=== PATIENT | male | born 1955 | race African-American/Black ===

== ENCOUNTER 2018-11-22 08:15 | Emergency (ER) | payer OTHER ==
[2018-11-22] VITALS (11 sets, daily range): BP systolic 135–161; BP diastolic 68–94
[~2018-11-22] VITALS: Ht 177.8 cm; Wt 72.6 kg
--- NOTE | 2018-11-22 08:15 | NUR ---
ED Nurse Note: Pt. AAOx3. Ambulatory. Brought in by ambulance from the street due to bizarre behavior. Per EMS, Upon arrival at the scene, Pt. was escorted already by [employer] and was reported to be running in and out of the traffic. Pt. is alert and able to answer question but has episodes of confusion during the conversation. Pt. was anxious, restless and combative.
[2018-11-22] MEDS ORDERED: NKM (08:18)
[2018-11-22] MEDS: Haloperidol 5mg/ml Inj IM ONE (08:21)
[2018-11-22] MEDS: LORazepam Inj 2mg/ml 1ml IV ONE (08:21)
--- NOTE | 2018-11-22 08:41 | Emergency Room Report ---
History of Present Illness General Chief Complaint: Behavioral Complaint Source: EMS, Law Enforcement Present Illness HPI 63-year-old male presents ED for evaluation. Brought in by EMS and [employer] for evaluation. Found running in streets. Bystanders called 911. Patient apprehended after being combative with [employer]. Arrival patient screaming and yelling. Denies any SI or HI. Denies alcohol or drug use. Denies any psychiatric history. Unwilling to provide any additional history at this time. No other aggravating relieving factors. Denies any other associated symptoms Allergies: Coded Allergies: No Known Allergies (Unverified , 11/22/18) Patient History Past Medical History: none Past Surgical History: none Pertinent Family History: none Social History: Denies: smoking, alcohol use, drug use Immunizations: UTD Reviewed Nursing Documentation: PMH: Agreed; PSxH: Agreed Nursing Documentation-PMH Past Medical History: No Stated History Review of Systems All Other Systems: negative except mentioned in HPI Physical Exam Vital Signs Date Time Temp Pulse Resp B/P (MAP) Pulse Ox O2 Delivery O2 Flow Rate FiO2 11/22/18 08:03 104 18 161/94 (116) 99 Room Air Sp02 EP Interpretation: reviewed, normal General Appearance: no apparent distress, alert, GCS 15, non-toxic, other - agitated/combative Head: normocephalic ENT: normal ENT inspection Neck: normal inspection Respiratory: chest non-tender, lungs clear, normal breath sounds, speaking full sentences Cardiovascular #1: regular rate, rhythm, no edema Gastrointestinal: normal inspection Rectal: deferred Genitourinary: no CVA tenderness Musculoskeletal: normal inspection Neurologic: other - agitated/combatvie Psychiatric: other - agitated/combative Skin: normal color Lymphatic: normal inspection Medical Decision Making Homeless Attestation I, The treating physician Dr. Casanova, have assessed and agrees that patient is medically stable for discharge to an outpatient disposition. Diagnostic Impression: Primary Impression: Substance abuse ER Course Hospital Course 63-year-old male presents with agitated aggressive behavior running on the streets. Differential diagnoses include: Psychosis, EtOH, drug abuse Clinical course patient placed on stretcher. On recruitment manager. After initial history and physical ordered labs, restraints, ativan/haldol Labs reviewed-electrolytes okay, no leukocytosis, hemoglobin/hematocrit stable, tox panel + PCP Patient allowed to sleep. Observed with stable vitals. Restraints subsequently removed once patient sedated. Patient is now alert oriented x3. No SI or HI. Behaving appropriately. Will be discharged home. Homeless checklist completed i. I feel this is a highly complex case requiring extensive working including EKG/Rhythm strip, Xray/CT/US, Blood/urine lab work, repeat exams while in ED, and administration of strong opiates/narcotics for pain control, admission to hospital or close patient follow up. Diagnosis - substance abuse Stable and discharged to home. Followup with PMD. Return to ED if symptoms recur or worsen Labs Test 11/22/18 08:15 11/22/18 08:34 White Blood Count 6.7 K/UL (4.8-10.8) Red Blood Count 4.14 M/UL (4.70-6.10) Hemoglobin 13.3 G/DL (14.2-18.0) Hematocrit 40.5 % (42.0-52.0) Mean Corpuscular Volume 98 FL (80-99) Mean Corpuscular Hemoglobin 32.1 PG (27.0-31.0) Mean Corpuscular Hemoglobin Concent 32.9 G/DL (32.0-36.0) Red Cell Distribution Width 12.3 % (11.6-14.8) Platelet Count 365 K/UL (150-450) Mean Platelet Volume 5.5 FL (6.5-10.1) Neutrophils (%) (Auto) 62.7 % (45.0-75.0) Lymphocytes (%) (Auto) 25.4 % (20.0-45.0) Monocytes (%) (Auto) 9.8 % (1.0-10.0) Eosinophils (%) (Auto) 0.6 % (0.0-3.0) Basophils (%) (Auto) 1.5 % (0.0-2.0) Sodium Level 139 MMOL/L (136-145) Potassium Level 3.6 MMOL/L (3.5-5.1) Chloride Level 104 MMOL/L (98-107) Carbon Dioxide Level 29 MMOL/L (21-32) Anion Gap 6 mmol/L (5-15) Blood Urea Nitrogen 13 mg/dL (7-18) Creatinine 1.1 MG/DL (0.55-1.30) Estimat Glomerular Filtration Rate > 60 mL/min (>60) Glucose Level 120 MG/DL (74-106) Calcium Level 9.1 MG/DL (8.5-10.1) Total Bilirubin 0.6 MG/DL (0.2-1.0) Aspartate Amino Transf (AST/SGOT) 38 U/L (15-37) Alanine Aminotransferase (ALT/SGPT) 49 U/L (12-78) Alkaline Phosphatase 123 U/L (46-116) Total Protein 7.4 G/DL (6.4-8.2) Albumin 3.9 G/DL (3.4-5.0) Globulin 3.5 g/dL Albumin/Globulin Ratio 1.1 (1.0-2.7) Salicylates Level 2.7 ug/mL (2.8-20) Acetaminophen Level < 2 MCG/ML (10-30) Serum Alcohol < 3 mg/dL Urine Opiates Screen Negative (NEGATIVE) Urine Barbiturates Screen Negative (NEGATIVE) Phencyclidine (PCP) Screen Positive (NEGATIVE) Urine Amphetamines Screen Negative (NEGATIVE) Urine Benzodiazepines Screen Negative (NEGATIVE) Urine Cocaine Screen Negative (NEGATIVE) Urine Marijuana (THC) Screen Negative (NEGATIVE) Last Vital Signs Date Time Temp Pulse Resp B/P (MAP) Pulse Ox O2 Delivery O2 Flow Rate FiO2 11/22/18 08:03 104 18 161/94 (116) 99 Room Air Status: improved Disposition: HOME, SELF-CARE Condition: Stable Armand Casanova MD Nov 22, 2018 08:41
[2018-11-22 08:44] LABS: ANION GAP 6 mmol/L (5-15); BLOOD UREA NITROGEN 13 mg/dL (7-18); CALCIUM 9.1 MG/DL (8.5-10.1); CARBON DIOXIDE 29 MMOL/L (21-32); CHLORIDE 104 MMOL/L (98-107); CREATININE 1.1 MG/DL (0.55-1.30); POTASSIUM 3.6 MMOL/L (3.5-5.1); SODIUM 139 MMOL/L (136-145)
[2018-11-22 08:48] LABS: ALANINE AMINOTRANSFERASE 49 U/L (12-78); ALBUMIN 3.9 G/DL (3.4-5.0); ALBUMIN/GLOBULIN RATIO 1.1 (1.0-2.7); ALKALINE PHOSPHATASE 123 U/L (46-116); ASPARTATE AMINO TRANSFERASE 38 U/L (15-37); BILIRUBIN,TOTAL 0.6 MG/DL (0.2-1.0)
[2018-11-22 08:54] LABS: BASOPHILS % (AUTO) 1.5 % (0.0-2.0); EOSINOPHILS % (AUTO) 0.6 % (0.0-3.0); HEMATOCRIT 40.5 % (42.0-52.0); HEMOGLOBIN 13.3 G/DL (14.2-18.0); LYMPHOCYTES % (AUTO) 25.4 % (20.0-45.0); MEAN CORPUSCULAR VOLUME 98 FL (80-99); MONOCYTES % (AUTO) 9.8 % (1.0-10.0); NEUTROPHILS % (AUTO) 62.7 % (45.0-75.0); PLATELET COUNT 365 K/UL (150-450); RED BLOOD COUNT 4.14 M/UL (4.70-6.10); RED CELL DISTRIBUTION WIDTH 12.3 % (11.6-14.8); WHITE BLOOD COUNT 6.7 K/UL (4.8-10.8)
--- NOTE | 2018-11-22 10:20 | NUR ---
ED Nurse Note: All leather restraints are taken off per ERMD's order. Skin is intact. No s/s of acute distress noted at this time
--- NOTE | 2018-11-22 14:06 | NUR ---
ED Nurse Note: Pt. is sleeping with no s/s of acute distress
--- NOTE | 2018-11-22 15:30 | NUR ---
ED Nurse Note: Pt. is still sleeping with no s/s of acute distress noted.
--- NOTE | 2018-11-22 16:53 | NUR ---
ED Nurse Note: Pt. woke up and peed in the room but has unsteady gait
--- NOTE | 2018-11-22 21:00 | NUR ---
ER DISCHARGE NOTE: Patient is cleared to be discharged per ERMD, pt is aox4, on room air, with stable vital signs. pt was given dc and prescription instructions, pt was able to verbalize understanding, pt id band and iv site removed without complications. pt is able to ambulate with steady gait. pt took all belongings.
== END 2018-11-22 21:45 | disposition home or self-care (01) ==
LOC: EDBD 08:15 → EMR 09:35
DX: F16.10 Hallucinogen abuse, uncomplicated (principal)
CPT/HCPCS: 36415; 80053; 80307; 80329; 85025; 96361; 96372; 96374; 99284; J1630

== ENCOUNTER 2019-01-24 10:01 | Emergency (ER) | payer OTHER ==
[~2019-01-24] VITALS: Ht 182.9 cm; Wt 82.6 kg
[~2019-01-24 10:01] MED LIST: NKM
[2019-01-24 10:12] VITALS: BP 170/96
--- NOTE | 2019-01-24 10:14 | NUR ---
ED Nurse Note: Patient walked in to ER by ambulance and [employer] officer Yunior #[id number] due to behavior complaint in public. Patient is alert and oriented x2 and restless but following all the commands. pt has steady gait. Skin dry and dishelved. No acute distress noted at this moment. pt denied an idea of harming self or others.
--- NOTE | 2019-01-24 10:17 | Emergency Room Report ---
History of Present Illness General Chief Complaint: Behavioral Complaint Source: EMS Present Illness HPI Disclaimer: Please note that this report is being documented using DRAGON technology. This can lead to erroneous entry secondary to incorrect interpretation by the dictating instrument. HPI: This is a 63-year-old male with history of hypertension brought in police custody for evaluation of abnormal behavior. Reportedly, the patient was agitated in front of a store front threatening to throw scooters through the store window display out of anger for not letting them into the store. He states that this was a misunderstanding. He denies any complaints at this time. He states he has not had any head injury or trauma, does not suffer from psychiatric illness, does not take any medications currently though is supposed to be taking medication for hypertension. Police corroborate that they have encountered him in the past but that he has no reported psychiatric history. He was originally combative though was redirectable. He is now calm and cooperative. He does not want medical evaluation would like to be released. He states that he stays with a friend and that he has no need for social work or psychiatry at this time. PMH: Hypertension PSH: Denies Allergies: Penicillin Allergies: Coded Allergies: PENICILLINS (Unverified Allergy, Unknown, 01/24/19) Nursing Documentation-PMH Past Medical History: No Stated History Review of Systems All Other Systems: negative except mentioned in HPI Physical Exam Vital Signs Date Time Temp Pulse Resp B/P (MAP) Pulse Ox O2 Delivery O2 Flow Rate FiO2 01/24/19 09:52 98.8 98 14 170/96 (120) 99 Room Air General: Awake and alert, no acute distress, in hand restraints by police HEENT: NC/AT. No scalp lacerations, hematomas or abrasions EOMI. Anicteric sclera. Moist mucous membranes Cardiovascular: RRR. S1 and S2 normal. No murmur appreciated Resp: Normal work of breathing. No cough, wheezing or crackles appreciated Abdomen: Abdomen is soft, nondistended. Nontender Skin: Intact. No abrasions, laceration or rash over the exposed skin MSK: Normal tone and bulk. Moving all extremities. No obvious deformity. Neuro: Awake and alert. Mentating appropriately. Medical Decision Making Diagnostic Impression: Primary Impression: Encounter for medical screening examination ER Course Is a 63-year-old male brought in by police for evaluation of aggressive behavior. Currently, he is calm, cooperative with exam but declining any medical services at present. He is declining imaging or blood work. He is capable of making medical decisions and has the capacity to refuse any services he does not want. Police say he is not in custody simply brought him for medical screening. There is no evidence of trauma. Patient may be released to his own care. I did provide him with mental health services should he require them in his discharge paperwork. I discussed with him the need to follow-up with a physician and gave him the names of several clinics in the area. He understands and agrees with this treatment plan was discharged Last Vital Signs Date Time Temp Pulse Resp B/P (MAP) Pulse Ox O2 Delivery O2 Flow Rate FiO2 01/24/19 09:52 98.8 98 14 170/96 (120) 99 Room Air Disposition: HOME, SELF-CARE Condition: Stable Referrals: [facility] Psych ER - Peds ER - [facility] Intake Hotline - [facility] - [facility] Additional Instructions: Your evaluated today however declined further lab testing or imaging. If you have any thoughts of suicide, significant depression, need help with housing, alcohol or drug abuse please return to the emergency department to speak with our counseling and psychiatry services. Return to the emergency department anytime with any new or worsening changes in your health. Several mental health places have been listed in your discharge paperwork to follow-up as an outpatient should you choose to do so. Bulmaro Bermeo MD Jan 24, 2019 10:16
[2019-01-24 10:21] VITALS: BP 170/96
--- NOTE | 2019-01-24 10:23 | NUR ---
Homeless Discharge: Patient is being discharged from medical care. Awake, alert and oriented x3 not to place. After care instructions, including referral to community resources were given. Patient verbalized understanding of After care instructions; at this time patient does not request medications, equipment or placement. Patient signed patient consent in the medical record for patient destination upon discharge. All medical devices removed. Patient ambulated out with all personal belongings with steady gait. [employer] at bedside and assisted pt out. pt denied an idea of harming self or others. no medical distress noted at this moment.
== END 2019-01-24 10:20 | disposition home or self-care (01) ==
LOC: EDBD 10:01 → EMR 10:20
DX: R45.1 Restlessness and agitation (principal); Z88.0 Allergy status to penicillin; I10 Essential (primary) hypertension
CPT/HCPCS: 99282

== ENCOUNTER 2019-05-24 10:56 | Emergency (ER) | payer OTHER ==
[~2019-05-24] VITALS: Ht 172.7 cm; Wt 72.6 kg
--- NOTE | 2019-05-24 11:07 | Emergency Room Report ---
History of Present Illness General Chief Complaint: Behavioral Complaint Source: EMS (Bulmaro Bermeo MD) Present Illness HPI Disclaimer: Please note that this report is being documented using [employer] technology. This can lead to erroneous entry secondary to incorrect interpretation by the dictating instrument. HPI: 64-year-old male with reported history of substance abuse presents for evaluation by JAMIR Oh and LEMUEL for abnormal behavior. The patient was found outside a convenience store taking his clothes off and behaving abnormally though nonthreatening and non-violently. He walked away from police and when he was confronted he was found to be confused and disoriented. Admitted to using PCP though is not clear whether that was today or yesterday. Originally, they stated he was oriented to self only however he had been improving on the ambulance ride to the hospital. Denied any chest pain or shortness of breath. Currently he is awake and alert. Mentating appropriately. Denies any head injury, headache, visual changes, neck or back pain, chest pain, shortness of breath, cough, abdominal pain. He did say that he was treated for a "lung infection" a while ago but is no longer taking antibiotics. He states he does not take any medication for psychiatric disorders and has no psych disorders to his knowledge. He is complaining of thirst and is requesting something to eat or drink. Thoughts are somewhat tangential though he is redirectable. PMH: None reported by patient, substance abuse by [employer] PSH: Denied Allergies: Denied Social Hx: Patient denied (Bulmaro Bermeo MD) Allergies: Coded Allergies: PENICILLINS (Unverified Allergy, Unknown, 01/24/19) Nursing Documentation-PMH Past Medical History: No History, Except For Hx Hypertension: Yes (Bulmaro Bermeo MD) Review of Systems All Other Systems: negative except mentioned in HPI (Bulmaro Bermeo MD) Physical Exam Vital Signs Date Time Temp Pulse Resp B/P (MAP) Pulse Ox O2 Delivery O2 Flow Rate FiO2 05/24/19 11:02 96.4 80 15 190/110 (136) 98 Room Air General: Awake and alert, no acute distress, disheveled HEENT: NC/AT. EOMI. pupils are 2 mm weakly reactive. Injected sclera bilaterally. Very dry mucous membranes and poor dentition. Neck: Supple, trachea midline Chest Wall: No tenderness, no deformity Cardiovascular: Regular rate and rhythm. S1 and S2 normal. No murmur appreciated Resp: Normal work of breathing. No cough, wheezing or crackles appreciated Abdomen: Abdomen is soft, nondistended. Nontender Skin: Intact. No abrasions, laceration or rash over the exposed skin MSK: Normal tone and bulk. Moving all extremities. No obvious deformity. Neuro: Awake and alert. Oriented x2, does not recognize where he is. Moving all extremities. Thought is somewhat tangential though he is redirectable. Focused on his belongings. Answering questions appropriately. (Bulmaro Bermeo MD) Sp02 EP Interpretation: reviewed, normal General Appearance: well appearing, no apparent distress, alert Head: normocephalic, atraumatic Eyes: bilateral eye PERRL, bilateral eye EOMI ENT: uvula midline, moist mucus membranes Neck: supple, thyroid normal, supple/symm/no masses Respiratory: lungs clear, no respiratory distress, no retraction, no accessory muscle use Cardiovascular #1: normal peripheral pulses, regular rate, rhythm, no edema, no gallop, no murmur Gastrointestinal: non tender, soft, no guarding, no rebound Musculoskeletal: normal inspection Neurologic: alert, oriented x3 Psychiatric: mood/affect normal Skin: no rash, warm/dry (Ronak Bright MD) Medical Decision Making Homeless Attestation I, The treating physician Dr. Bright, have assessed and agrees that patient is medically stable for discharge to an outpatient disposition. (Ronak Bright MD) Diagnostic Impression: Primary Impression: PCP abuse Additional Impression: Psychosis Qualified Codes: F28 - Other psychotic disorder not due to a substance or known physiological condition ER Course 64-year-old male presents for evaluation of behavioral changes by [employer] and [facility]EMUEL. He is not under police hold or under arrest. Patient appears to be improving initially with reports of confusion and disorientation however now behaving appropriately, calm and cooperative, no complaints from patient aside from thirst. He does appear dehydrated possibly under the influence of substance. We will start broad metabolic, infectious and toxicologic work-up particular given the patient's report of some lung infection, presumably pneumonia. (Bulmaro Bermeo MD) ER Course Please see above note Patient standing. He states he is living on the streets. He still has some unusual speech at this time. He denies suicidal ideation. Still not able to be discharged at this time. Continue observation. 18:35 Patient poorly responding to commands to return to [facility]. Risk of fall and still not coherent. Sedation ordered. 21:45 - sedated. D/C restraints. Signed out to Dr. Bright. Will need re- evaluation when PCP wears off and "sober". Laboratory Tests Test 05/24/19 11:40 05/24/19 16:11 White Blood Count 10.5 K/UL (4.8-10.8) Red Blood Count 4.09 M/UL (4.70-6.10) L Hemoglobin 13.1 G/DL (14.2-18.0) L Hematocrit 39.4 % (42.0-52.0) L Mean Corpuscular Volume 96 FL (80-99) Mean Corpuscular Hemoglobin 32.0 PG (27.0-31.0) H Mean Corpuscular Hemoglobin Concent 33.2 G/DL (32.0-36.0) Red Cell Distribution Width 11.7 % (11.6-14.8) Platelet Count 259 K/UL (150-450) Mean Platelet Volume 5.8 FL (6.5-10.1) L Neutrophils (%) (Auto) 81.7 % (45.0-75.0) H Lymphocytes (%) (Auto) 11.2 % (20.0-45.0) L Monocytes (%) (Auto) 6.3 % (1.0-10.0) Eosinophils (%) (Auto) 0.2 % (0.0-3.0) Basophils (%) (Auto) 0.7 % (0.0-2.0) Sodium Level 141 MMOL/L (136-145) Potassium Level 4.0 MMOL/L (3.5-5.1) Chloride Level 101 MMOL/L (98-107) Carbon Dioxide Level 27 MMOL/L (21-32) Anion Gap 13 mmol/L (5-15) Blood Urea Nitrogen 27 mg/dL (7-18) H Creatinine 1.1 MG/DL (0.55-1.30) Estimate Glomerular Filtration Rate > 60 mL/min (>60) Glucose Level 106 MG/DL (74-106) Calcium Level 9.5 MG/DL (8.5-10.1) Total Bilirubin 0.8 MG/DL (0.2-1.0) Aspartate Amino Transferase (AST) 64 U/L (15-37) H Alanine Aminotransferase (ALT) 36 U/L (12-78) Alkaline Phosphatase 98 U/L (46-116) Total Protein 8.2 G/DL (6.4-8.2) Albumin 3.7 G/DL (3.4-5.0) Globulin 4.5 g/dL Albumin/Globulin Ratio 0.8 (1.0-2.7) L Salicylates Level 1.9 ug/mL (2.8-20) L Acetaminophen Level < 2 MCG/ML (10-30) L Serum Alcohol < 3 mg/dL Urine Color Pale yellow Urine Appearance Clear Urine pH 7 (4.5-8.0) Urine Specific Brea 1.005 (1.005-1.035) Urine Protein 2+ (NEGATIVE) H Urine Glucose (UA) Negative (NEGATIVE) Urine Ketones Negative (NEGATIVE) Urine Blood 2+ (NEGATIVE) H Urine Nitrite Negative (NEGATIVE) Urine Bilirubin Negative (NEGATIVE) Urine Urobilinogen Normal MG/DL (0.0-1.0) Urine Leukocyte Esterase Negative (NEGATIVE) Urine RBC 0-2 /HPF (0 - 0) H Urine WBC 0-2 /HPF (0 - 0) Urine Squamous Epithelial Cells Occasional /LPF Urine Bacteria None /HPF (NONE) Urine Opiates Screen Negative (NEGATIVE) Urine Barbiturates Screen Negative (NEGATIVE) Phencyclidine (PCP) Screen Positive (NEGATIVE) H Urine Amphetamines Screen Negative (NEGATIVE) Urine Benzodiazepines Screen Negative (NEGATIVE) Urine Cocaine Screen Negative (NEGATIVE) Urine Marijuana (THC) Screen Negative (NEGATIVE) (Byron Fisher MD) ER Course Reevaluation 4:27 AM, patient with a stable gait patient was then found stealing supplies in the supply closet in the back room Patient knows who he is counseled patient that he cannot do that patient is free to go Patient is abusing drugs counseled patient about drug use Disposition home with return precautions (Ronak Bright MD) EKG Diagnostic Results EKG Time: 11:06 Rate: normal Rhythm: NSR ST Segments: no acute changes Other Impression Sinus rhythm, normal axis, normal intervals, nonspecific T wave abnormalities. (Bulmaro Bermeo MD) Rhythm Strip Diag. Results Rhythm Strip Time: 11:06 EP Interpretation: yes Rate: 80s Rhythm: NSR, no PVC's, no ectopy (Bulmaro Bermeo MD) Reevaluation Time: 13:46 Reevaluation Impression Labs thus far unremarkable. Still waiting on urinalysis and urine drug screen. The patient remains altered and appears confused. He is unsteady in gait. (Bulmaro Bermeo MD) Last Vital Signs Date Time Temp Pulse Resp B/P (MAP) Pulse Ox O2 Delivery O2 Flow Rate FiO2 05/24/19 21:25 96.4 92 14 172/98 100 Room Air Status: improved (Byron Fisher MD) Disposition: HOME, SELF-CARE Condition: Stable Referrals: [facility] Patient Instructions: Self-Destructive Behavior, Stimulant Use Disorder- Methamphetamines Additional Instructions: The patient was provided with discharge instructions, notified to follow-up with a primary care doctor and or specialist in the next 24-48 hours, and to return to the ED if they have worsening of their symptoms. Please note that this report is being documented using [employer] technology. This can lead to erroneous entry secondary to incorrect interpretation by the dictating instrument. Bulmaro Bermeo MD May 24, 2019 11:07 Byron Fisher MD May 24, 2019 18:35 Ronak Bright MD May 25, 2019 04:29
[2019-05-24 11:10] VITALS: BP 187/108
--- NOTE | 2019-05-24 11:10 | NUR ---
ED Nurse Note: Pt was BIBA from [facility] d/t anxious behavior and episode of confusion. Pt is ambulatory, AOx3, has an IV site on LT hand with 20G. Placed on bed and gown, hooked to electronic device monitor.
[2019-05-24] MEDS ORDERED: LORazepam Inj 2mg/ml 1ml IV ONE (11:30)
[2019-05-24] MEDS: Haloperidol 5mg/ml Inj IM PRN ×2 (11:53→18:49)
[2019-05-24 12:01] LABS: BASOPHILS % (AUTO) 0.7 % (0.0-2.0); EOSINOPHILS % (AUTO) 0.2 % (0.0-3.0); HEMATOCRIT 39.4 % (42.0-52.0); HEMOGLOBIN 13.1 G/DL (14.2-18.0); LYMPHOCYTES % (AUTO) 11.2 % (20.0-45.0); MEAN CORPUSCULAR VOLUME 96 FL (80-99); MONOCYTES % (AUTO) 6.3 % (1.0-10.0); NEUTROPHILS % (AUTO) 81.7 % (45.0-75.0); PLATELET COUNT 259 K/UL (150-450); RED BLOOD COUNT 4.09 M/UL (4.70-6.10); RED CELL DISTRIBUTION WIDTH 11.7 % (11.6-14.8); WHITE BLOOD COUNT 10.5 K/UL (4.8-10.8)
[2019-05-24 12:10] LABS: ANION GAP 13 mmol/L (5-15); BLOOD UREA NITROGEN 27 mg/dL (7-18); CALCIUM 9.5 MG/DL (8.5-10.1); CARBON DIOXIDE 27 MMOL/L (21-32); CHLORIDE 101 MMOL/L (98-107); CREATININE 1.1 MG/DL (0.55-1.30); SODIUM 141 MMOL/L (136-145)
[2019-05-24 12:14] LABS: ALANINE AMINOTRANSFERASE 36 U/L (12-78); ALBUMIN 3.7 G/DL (3.4-5.0); ALBUMIN/GLOBULIN RATIO 0.8 (1.0-2.7); ALKALINE PHOSPHATASE 98 U/L (46-116); ASPARTATE AMINO TRANSFERASE 64 U/L (15-37); BILIRUBIN,TOTAL 0.8 MG/DL (0.2-1.0)
--- NOTE | 2019-05-24 13:00 | NUR ---
ED Nurse Note: Pt on bed, sleeping, no signs of acute distress.
--- NOTE | 2019-05-24 14:25 | Diagnostic Imaging Report ---
Indication: Cough, shortness of breath Technique: One view of the chest Comparison: none Findings: The heart is upper limits normal in size. There is atelectasis at the left lateral lung base. Lungs and pleural space are otherwise clear. Impression: No acute process
[2019-05-24 16:30] LABS: APPEARANCE,URINE CLEAR; BILIRUBIN, URINE NEGATIVE (NEGATIVE); COLOR,URINE PALE YELLOW; GLUCOSE, URINE (UA) NEGATIVE (NEGATIVE); KETONES,URINE NEGATIVE (NEGATIVE); LEUKOCYTE ESTERASE ,URINE NEGATIVE (NEGATIVE); NITRITE,URINE NEGATIVE (NEGATIVE); PH,URINE 7 (4.5-8.0); PROTEIN,URINE 2+ (NEGATIVE); UROBILINOGEN,URINE NORMAL MG/DL (0.0-1.0)
--- NOTE | 2019-05-24 18:00 | NUR ---
ED Nurse Note: Pt awake, asking for snacks and coffee. Offered coffee and sandwich.
[2019-05-24] MEDS ORDERED: Haloperidol 5mg/ml Inj IM ONE (19:00)
[2019-05-24] MEDS ORDERED: DiphenhydrAMINE 50mg/ml Inj IM ONE (19:00)
[2019-05-24] MEDS ORDERED: LORazepam Inj 2mg/ml 1ml IM ONE (19:00)
--- NOTE | 2019-05-24 19:00 | NUR ---
ED Nurse Note: Pt is on bilateral soft restraints on wrists, tolerated. Placed bed on low position, bilateral side rails up. VSS, no signs of acute distress.
--- NOTE | 2019-05-24 19:02 | NUR ---
ED Nurse Note: Belongings placed on cabinet #3
--- NOTE | 2019-05-24 19:05 | NUR ---
HAND-OFF: Report given to Liberty ROMERO.
--- NOTE | 2019-05-24 19:30 | NUR ---
ED Nurse Note: Recieved report to resume care, pt in bed sleeping, arouses to tactile stimuli, pt is confused and answers questions inappropriately with explicit sexual gestures, pt is dirty and discheveled, no restraints on needed at this time, pt gowned and placed on cardiac monitoring, v/s taken, pt has no iv site, MD aware, pt to be medicated with IM meds for increasing agitation, room is very discheveled with food and spit on serrano and side rails, will medicate pt as ordered and closely montior for any acute changes or increased distress.
[2019-05-24 19:35] VITALS: BP 169/96
[2019-05-24 21:25] VITALS: BP 172/98
--- NOTE | 2019-05-24 22:00 | NUR ---
ED Nurse Note: Pt continues to sleep in bed, arouses to verbal stimuli, answers inappropriately with sexual comments and remarks to nurse, on cardiac monitoring, remains out of restraint use, will continue to monitor.
[2019-05-25] VITALS: BP 174/92
--- NOTE | 2019-05-25 00:45 | NUR ---
ED Nurse Note: Pt becoming more awake and alert, oriented to place, and name, mostly un-cooperative, given sandwich and juice, ate most then threw around in room, food on serrano and everywhere, attempted to assist pt with cleaning himself, pt remains un-cooperative, MD aware, pt does remain on cardiac monitoring, no IV site, will continue to monitor nd prepre for discharge in am if pt remains oriented and safe for d/c.
[2019-05-25 03:00] VITALS: BP 166/84
--- NOTE | 2019-05-25 03:00 | NUR ---
ED Nurse Note: Pt in bed, awake and alert, yelling sexual contents to nurse continuously, in room naked and exposing himself to nurse, no attempts to harm self or others made, pt is more cooperative, pt asking to leave, oriented pt to time of night and explained will d/c in am when safe, pt agrees and back to sleep, remains on cardiac monitoring, will continue to closely monitor.
[2019-05-25 04:30] VITALS: BP 166/84
--- NOTE | 2019-05-25 04:30 | NUR ---
ED Nurse Note: Pt in room awake and alert, yelling and shouting for more food, given, now pt wants to leave, MD informed, pt given clean dry clothing to wear, and more sandwiches, pt is awake, alert and oriented x 4, denies pain, no sob or labored breathing and is ambulatory with steady gait, pt refusing to wait for d/c instructions or to sign any homeless forms, pt was discharged but did not wait for info or instructions, and charge nurse aware, nad noted during pt leaving facility.
[2019-05-25] MEDS ORDERED: TYLENOL325 MG ORAL (18:08)
[2019-05-25] MEDS ORDERED: ALBUTEROL SULF8.5 GM INH (18:08)
[2019-05-25] MEDS ORDERED: ZITHROMAX250 MG ORAL (18:08)
== END 2019-05-25 04:30 | disposition home or self-care (01) ==
LOC: EDBD 10:56 → EMR 11:40
DX: F16.10 Hallucinogen abuse, uncomplicated (principal); F28 Other psychotic disorder not due to a substance or known physiological condition; I10 Essential (primary) hypertension; Z88.0 Allergy status to penicillin; Z59.0 Homelessness
CPT/HCPCS: 36415; 71045; 80053; 80307; 81003; 85025; 93005; 96361; 96372; 96374; G0480; G0481; J1200; J1630; Z7502; 99284

== ENCOUNTER 2019-05-25 13:59 | Emergency (ER) | payer OTHER ==
[~2019-05-25] VITALS: Ht 188 cm; Wt 95.3 kg
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
--- NOTE | 2019-05-25 14:10 | NUR ---
ED Nurse Note: Pt brought in to ER from street due to coughing. pt was discharged from [facility] this morning and per pt he has been staying in street and coughing. pt aao x3 and ambulatory but weak. cooperative but use inappropriate words when he explaines the symptoms. not physical aggression noted. pt coughing and congestion noted but unable to cough out the secretion. pt is in gown and on registered nurse cardiac. no SOB noted. pt also c/o chest pain due to coughing.
[2019-05-25 14:14] VITALS: BP 164/89
[2019-05-25] MEDS ORDERED: Ipratropium 0.02% Inh Soln 2.5ml UD HHN ONE (14:15)
[2019-05-25] MEDS ORDERED: Albuterol ud Inhalation HHN ONE (14:15)
--- NOTE | 2019-05-25 15:14 | Diagnostic Imaging Report ---
EXAM: XR Chest, 1 View CLINICAL HISTORY: COUGH TECHNIQUE: Frontal view of the chest. COMPARISON: Chest radiograph on 05/24/2019 FINDINGS: Hardware: None. Lungs/pleura: Left lower lung opacity. No pleural effusion or pneumothorax. Heart/mediastinum: Normal. No cardiomegaly. Soft tissues: Unremarkable. Bones: No acute fracture. Upper abdomen: Normal. IMPRESSION: Left lower lung opacity may represent atelectasis versus pneumonia.
[2019-05-25 15:16] LABS: INR 0.9 (0.9-1.1)
[2019-05-25 15:23] LABS: BASOPHILS % (AUTO) 1.1 % (0.0-2.0); EOSINOPHILS % (AUTO) 0.3 % (0.0-3.0); HEMATOCRIT 37.3 % (42.0-52.0); HEMOGLOBIN 12.5 G/DL (14.2-18.0); LYMPHOCYTES % (AUTO) 14.7 % (20.0-45.0); MEAN CORPUSCULAR VOLUME 96 FL (80-99); MONOCYTES % (AUTO) 8.5 % (1.0-10.0); NEUTROPHILS % (AUTO) 75.3 % (45.0-75.0); PLATELET COUNT 259 K/UL (150-450); RED BLOOD COUNT 3.87 M/UL (4.70-6.10); RED CELL DISTRIBUTION WIDTH 11.5 % (11.6-14.8); WHITE BLOOD COUNT 7.8 K/UL (4.8-10.8)
[2019-05-25 15:30] LABS: ANION GAP 10 mmol/L (5-15); BLOOD UREA NITROGEN 27 mg/dL (7-18); CALCIUM 8.8 MG/DL (8.5-10.1); CARBON DIOXIDE 29 MMOL/L (21-32); CHLORIDE 104 MMOL/L (98-107); CREATININE 1.2 MG/DL (0.55-1.30); POTASSIUM 3.9 MMOL/L (3.5-5.1); SODIUM 143 MMOL/L (136-145)
[2019-05-25 15:46] LABS: ALANINE AMINOTRANSFERASE 36 U/L (12-78); ALBUMIN 3.3 G/DL (3.4-5.0); ALBUMIN/GLOBULIN RATIO 0.8 (1.0-2.7); ALKALINE PHOSPHATASE 95 U/L (46-116); ASPARTATE AMINO TRANSFERASE 65 U/L (15-37); BILIRUBIN,TOTAL 0.7 MG/DL (0.2-1.0); CREATINE KINASE 1450 U/L (26-308)
[2019-05-25 16:01] LABS: APPEARANCE,URINE CLEAR; BILIRUBIN, URINE NEGATIVE (NEGATIVE); GLUCOSE, URINE (UA) NEGATIVE (NEGATIVE); KETONES,URINE 1+ (NEGATIVE); LEUKOCYTE ESTERASE ,URINE NEGATIVE (NEGATIVE); NITRITE,URINE NEGATIVE (NEGATIVE); PH,URINE 6 (4.5-8.0); PROTEIN,URINE 3+ (NEGATIVE); UROBILINOGEN,URINE 4 MG/DL (0.0-1.0)
[2019-05-25 16:02] LABS: COLOR,URINE YELLOW
[2019-05-25] MEDS ORDERED: Azithromycin 500 MG in D5W 275 ML IVPB ONE (16:15)
--- NOTE | 2019-05-25 17:58 | NUR ---
ED Nurse Note: pt stood up and urinated in trash can in the room.
--- NOTE | 2019-05-25 18:00 | NUR ---
ED Nurse Note: ERMD at bedside.
[2019-05-25] MEDS ORDERED: ALBUTEROL SULF8.5 GM INH (18:08)
[2019-05-25] MEDS ORDERED: TYLENOL325 MG ORAL (18:08)
[2019-05-25] MEDS ORDERED: ZITHROMAX250 MG ORAL (18:08)
[2019-05-25 18:20] VITALS: BP 109/82
--- NOTE | 2019-05-25 18:20 | NUR ---
Homeless Discharge: Patient is being discharged from medical care. Awake, alert and oriented x4. After care instructions, including referral to community resources were given. Patient verbalized understanding of After care instructions; at this time patient does not equipment or placement. Patient refused to provide location to go. Patient was provided with 2 sandwich and juice and water. patient has weather appropriate clothes. Patient refused to participate in mini cog. Patient signed patient consent in the medical record for patient destination upon discharge. All medical devices such as IV and ID band were removed. Patient ambulated out with all personal belongings with steady gait.
== END 2019-05-25 18:20 | disposition home or self-care (01) ==
LOC: EDBD 13:59 → EMR 14:45
DX: J44.9 Chronic obstructive pulmonary disease, unspecified (principal); F16.10 Hallucinogen abuse, uncomplicated; I10 Essential (primary) hypertension; Z59.0 Homelessness
CPT/HCPCS: 36415; 71045; 80053; 81003; 82550; 83690; 84484; 85025; 85610; 85730; 93005; J0456; J7030; Z7502; 99283

== ENCOUNTER 2020-05-11 12:07 | Emergency (ER) | payer MEDICAID, OTHER ==
[~2020-05-11] VITALS: Ht 180.3 cm; Wt 79.4 kg
[~2020-05-11 12:07] MED LIST changes: +ALBUTEROL SULF8.5 GM INH; +TYLENOL325 MG ORAL; +ZITHROMAX250 MG ORAL
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
[2020-05-11 13:37] VITALS: BP 167/95
[2020-05-11 13:57] LABS: EOSINOPHILS % (AUTO) 1.1 % (0.0-3.0); HEMATOCRIT 35.9 % (42.0-52.0); LYMPHOCYTES % (AUTO) 26.6 % (20.0-45.0); MEAN CORPUSCULAR VOLUME 91 FL (80-99); MONOCYTES % (AUTO) 8.4 % (1.0-10.0); NEUTROPHILS % (AUTO) 61.9 % (45.0-75.0); PLATELET COUNT 198 K/UL (150-450); RED BLOOD COUNT 3.96 M/UL (4.70-6.10); RED CELL DISTRIBUTION WIDTH 15.3 % (11.6-14.8); WHITE BLOOD COUNT 5.7 K/UL (4.8-10.8)
[2020-05-11 14:06] LABS: ANION GAP 5 mmol/L (5-15); BLOOD UREA NITROGEN 16 mg/dL (7-18); CALCIUM 8.3 MG/DL (8.5-10.1); CARBON DIOXIDE 27 MMOL/L (21-32); CHLORIDE 107 MMOL/L (98-107); CREATININE 1.1 MG/DL (0.55-1.30); POTASSIUM 3.8 MMOL/L (3.5-5.1); SODIUM 139 MMOL/L (136-145)
[2020-05-11 14:10] LABS: ALANINE AMINOTRANSFERASE 28 U/L (12-78); ALBUMIN 3.7 G/DL (3.4-5.0); ALBUMIN/GLOBULIN RATIO 1.1 (1.0-2.7); ALKALINE PHOSPHATASE 103 U/L (46-116); ASPARTATE AMINO TRANSFERASE 38 U/L (15-37); BILIRUBIN,TOTAL 0.5 MG/DL (0.2-1.0)
--- NOTE | 2020-05-11 14:15 | NUR ---
ED Nurse Note: belonginsg placed on psych locker #3
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
--- NOTE | 2020-05-11 15:50 | NUR ---
ED Nurse Note: hold lifted by dr richardson
[2020-05-11 16:15] VITALS: BP 158/89
--- NOTE | 2020-05-11 16:15 | NUR ---
ER DISCHARGE NOTE: Patient is cleared to be discharged per ERMD, pt is aox3, on room air, with stable vital signs. pt was given dc and prescription instructions, pt was able to verbalize understanding, pt id band and iv site removed without complications. pt is able to ambulate with steady gait. pt took all belongings.
--- NOTE | 2020-05-11 18:44 | Consultation ---
DATE OF CONSULTATION: 05/11/2020 NOTE: INCOMPLETE DICTATION CONSULTING PHYSICIAN: David Dupree MD HISTORY OF PRESENT ILLNESS: This is an male with a history of PCP abuse and psychotic disorder who has been admitted to the hospital on 5150. He is homeless. He was brought in by the paramedics due to danger to self. Patient is now doing better. He is not having any suicidal or homicidal ideation. Patient is calm and asking for food. He is also stating that he is tired, needs a place to sleep. PAST PSYCHIATRIC HISTORY: Several psychiatric hospitalizations and stated that he was just discharged from psychiatric hospital. He is unable to recall the names. He is not telling out the name of the hospital. Patient is not compliant with the psychotropic medications. PAST MEDICAL HISTORY: History of cellulitis, hypertension. ALLERGIES: No known drug allergies. David Dupree M.D. DR: ABRAHAM JOB#: [id number] CC:
== END 2020-05-11 16:15 | disposition home or self-care (01) ==
LOC: EMR 12:45
DX: F16.10 Hallucinogen abuse, uncomplicated (principal); Z20.828 Contact with and (suspected) exposure to other viral communicable diseases; I10 Essential (primary) hypertension
CPT/HCPCS: 36415; 80053; 80307; 85025; G0480; G0481; U0002; Z7502; 99284

== ENCOUNTER 2020-05-14 07:06 | Emergency (ER) | payer MEDICAID | END 2020-05-14 07:25 | disposition left against medical advice (07) | LOC: EMR 07:25 | DX: I10 Essential (primary) hypertension (principal); Z53.21 Procedure and treatment not carried out due to patient leaving prior to being seen by health care provider ==